=== PATIENT | female | born 1980 | race Caucasian/White ===

== ENCOUNTER 2019-07-07 10:41 | Emergency (ER) | payer OTHER, SELFPAY ==
--- NOTE | ~2019-07-07 | XR_ITS ---
EXAMINATION: XR knee LT min 4V DATE: 07/07/2019 11:15 INDICATION: Left knee pain. Fall. TECHNIQUE: 5 views of left knee were obtained. COMPARISON: None. FINDINGS: Bone alignment is normal. No fracture. There is mild osteoarthritis of medial compartment. No knee joint effusion. IMPRESSION: 1. Mild left knee osteoarthritis. Reviewed, dictated and finalized at location A. AL ATTENDANT
[2019-07-07 10:51] VITALS: BP 112/69; PULSE 64; RESP 18; TEMP 36.8; O2SAT 99
--- NOTE | 2019-07-07 11:02 | ED.LOWEXIN ---
HPI - Extremity Injury (Lower) General Chief Complaint: Extremity Injury, Lower Stated Complaint: L/knee pain Time Seen by Provider: 07/07/19 10:55 Mode of arrival: ambulatory Limitations: no limitations History of Present Illness HPI Narrative: Gail Fischer is a 38 yo female no prior medical history who comes to express care with painful knees after fall last night at work. Fell over tray and fell forward Smokes occasionally denies drinking Related Data Allergies Allergy/AdvReac Type Severity Reaction Status Date / Time No Known Allergies Allergy Verified 07/07/19 10:56 Review of Systems Review of Systems: Narrative: CONSTITUTIONAL: Denies fever, chills, sweats. EYES: Denies visual changes, redness, discharge. ENT: Denies rhinorrhea, congestion, sore throat, otalgia. CARDIOVASCULAR: Denies chest pain, palpitations, edema. RESPIRATORY: Denies dyspnea, wheezing, cough GASTROINTESTINAL: Denies abdominal pain, nausea, vomiting, diarrhea. GENITOURINARY: Denies dysuria, hematuria, abnormal discharge SKIN: Denies rash or itching. Extremities:Bilateral knee pain- abrasion on R, bruising on L NEUROLOGIC: Denies numbness, or focal weakness. PSYCHIATRIC: Denies anxiety or depression. [facility] Family History Family History Other No active medical problems Social History Social History (Updated 07/07/19 @ 11:14 by Jessi Saab CNP) Smoking status: Current some day smoker Alcohol intake: current Comments At time of signature, I agree with nursing past medical, surgical, social and family history. There is no relevant family history pertinent to the presenting complaint. Exam Narrative: Exam Narrative: GENERAL: This is a well-nourished, well-developed patient, in mild distress. HEAD: normocephalic, atraumatic. EYES: Sclera clear/white. Vision is grossly intact. EARS: External ears normal, Hearing grossly intact. NOSE: External nose normal with no obvious nasal discharge, nares without redness, no rhinorrhea. THROAT: Mucous membranes moist, NECK: Neck supple, non-tender without lymphadenopathy, CARDIOVASCULAR: Regular rate and rhythm without murmurs, gallops, or rubs. RESPIRATORY: Clear to auscultation. Breath sounds equal bilaterally. No wheezes, rales, or rhonchi. GASTROINTESTINAL: Abdomen soft, non-tender, splenomegaly, SKIN: warm, intact with no suspicious lesions or rash, good texture and turgor. NEURO: awake, alert, and oriented to person, place and time. There were no obvious focal neurologic abnormalities. Steady gait EXTREMITIES: Normal range of motion. No edema.L patellar swelling with flex pf 100 degrees. BACK: Nontender without deformity. Course Course Emergency Course: Xray Vital Signs Vital signs: Vital Signs Temperature 98.2 F 07/07/19 10:51 Pulse Rate 64 07/07/19 10:51 Respiratory Rate 18 07/07/19 10:51 Blood Pressure 112/69 07/07/19 10:51 Pulse Oximetry 99 07/07/19 10:51 Temperature 98.2 F 07/07/19 10:51 Pulse Rate 64 07/07/19 10:51 Respiratory Rate 18 07/07/19 10:51 Blood Pressure 112/69 07/07/19 10:51 Pulse Oximetry 99 07/07/19 10:51 MDM - Extremity Injury (Lower) Differential Diagnosis Differential diagnosis: Likely acute internal derangement of knee and other (patellar contusion or fracture) Discharge Plan Discharge Clinical Impression: Contusion of knee, left Qualifiers: Encounter type: initial encounter Qualified Code(s): S80.02XA - Contusion of left knee, initial encounter Abrasion of knee, right Qualifiers: Encounter type: initial encounter Qualified Code(s): S80.211A - Abrasion, right knee, initial encounter Patient Disposition: Home, Self-Care Condition: Stable Instructions: Knee Pain (ED) Prescriptions: New naproxen [EC-Naproxen] 500 mg tablet,delayed release (DR/EC) 500 mg PO BID Qty: 30 RF: 0 Follow-up/Referrals: UNKNOWN,DOCTOR [Prim
== END 2019-07-07 11:30 | disposition home or self-care (01) ==
PROVIDERS: Emergency Provider Nurse Practitioner
DX: S80.02XA Contusion of left knee, initial encounter (principal); W18.09XA Striking against other object with subsequent fall, initial encounter; Y99.0 Civilian activity done for income or pay; S80.211A Abrasion, right knee, initial encounter; F17.200 Nicotine dependence, unspecified, uncomplicated
CPT/HCPCS: 73564; 99213; G0463

== ENCOUNTER 2019-09-28 19:54 | Emergency (ER) | payer OTHER, SELFPAY ==
--- NOTE | 2019-09-28 19:59 | ED.SKABFB ---
HPI - Skin/Abscess/Foreign Bdy General Chief complaint: Skin/Abscess/Foreign Body Stated complaint: insect bite Time Seen by Provider: 09/28/19 19:59 Source: patient Mode of arrival: ambulatory Limitations: no limitations History of Present Illness HPI narrative: chema Fischer is a 38 yo female with anxiety, who came to express care with swelling on her left wrist with what looks like a insect bite, she also has a welt on her upper right arm and on her left abdomen, patient noticed swelling on her right wrist this afternoon the one on her arm and abdomen have been there for 1 to 2 days, all 3 lesions are pruritic Related Data Allergies Allergy/AdvReac Type Severity Reaction Status Date / Time No Known Allergies Allergy Verified 09/28/19 19:58 Review of Systems Review of Systems: Narrative: CONSTITUTIONAL: Denies fever, chills, sweats. EYES: Denies visual changes, redness, discharge. ENT: Denies rhinorrhea, congestion, sore throat, otalgia. CARDIOVASCULAR: Denies chest pain, palpitations, edema. RESPIRATORY: Denies dyspnea, wheezing, cough GASTROINTESTINAL: Denies abdominal pain, nausea, vomiting, diarrhea. GENITOURINARY: Denies dysuria, hematuria, abnormal discharge SKIN: Denies rash or itching.-3 lesions 1 on the left wrist that is swelling one on right upper arm one on abdomen NEUROLOGIC: Denies numbness, or focal weakness. PSYCHIATRIC: Denies anxiety or depression. [facility] Social History Social History Smoking status: Current some day smoker Alcohol intake: current Comments The patient's medical social surgical history is been reviewed and the this is not relevant to the reason she is at the [facility] today Exam Narrative: Exam Narrative: GENERAL: This is a well-nourished, well-developed patient, in mild distress. HEAD: normocephalic, atraumatic. EYES: PERRL. Sclera clear/white. Vision is grossly intact. EARS: External ears normal, . Hearing grossly intact. NOSE: External nose normal without nasal discharge, nares without redness, no rhinorrhea. THROAT: Mucous membranes moist, NECK: Neck supple, non-tender CARDIOVASCULAR: Regular rate and rhythm without murmurs, gallops, or rubs. RESPIRATORY: Clear to auscultation. Breath sounds equal bilaterally. No wheezes, rales, or rhonchi. GASTROINTESTINAL: Abdomen soft, non-tender, SKIN: warm, intact with 3 lesions -left wrist is red and swollen, right upper arm looks like a typical hive, tdeep red, left abdomen NEURO: awake, alert, and oriented to person, place and time. There were no obvious focal neurologic abnormalities. Steady gait EXTREMITIES: Normal range of motion. BACK: Nontender without deformity Course Course Emergency Course: Started on prednisone taper pack and Benadryl and Pepcid Vital Signs Vital signs: Vital Signs Temperature 97.2 F L 09/28/19 20:00 Pulse Rate 92 09/28/19 20:00 Respiratory Rate 16 09/28/19 20:00 Blood Pressure 130/83 09/28/19 20:00 Pulse Oximetry 99 09/28/19 20:00 Temperature 97.2 F L 09/28/19 20:00 Pulse Rate 92 09/28/19 20:00 Respiratory Rate 16 09/28/19 20:00 Blood Pressure 130/83 09/28/19 20:00 Pulse Oximetry 99 09/28/19 20:00 MDM - Skin/Abscess/Foreign Bdy Differential Diagnosis Differential diagnosis: Likely urticaria, allergic reaction to drug, insect bites, contact dermatitis and other Discharge Plan Discharge Clinical Impression: Urticaria Insect bites Qualifiers: Encounter type: initial encounter Site of insect bite: forearm Laterality: left Qualified Code(s): S50.862A - Insect bite (nonvenomous) of left forearm, initial encounter Patient Disposition: Home, Self-Care Condition: Stable Instructions: Urticaria (ED), Insect Bite or Sting (ED) Prescriptions: New famotidine [Pepcid] 20 mg tablet 20 mg PO BID Qty: 10 RF: 0 diphenhydramine HCl [Benadryl] 25 mg capsule 25 mg PO Q6H PRN (Reason: allerg
[2019-09-28 20:00] VITALS: BP 130/83; PULSE 92; RESP 16; TEMP 36.2; O2SAT 99
== END 2019-09-28 20:12 | disposition home or self-care (01) ==
PROVIDERS: Emergency Provider Nurse Practitioner
DX: L50.9 Urticaria, unspecified (principal); S50.862A Insect bite (nonvenomous) of left forearm, initial encounter; W57.XXXA Bitten or stung by nonvenomous insect and other nonvenomous arthropods, initial encounter
CPT/HCPCS: 99213; G0463

== ENCOUNTER 2022-09-19 14:32 | Emergency (ER) | payer OTHER, SELFPAY ==
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
[2022-09-19 14:44] VITALS: BP 123/78; PULSE 58; RESP 18; TEMP 36.6; O2SAT 99
== END 2022-09-19 15:28 | disposition home or self-care (01) ==
PROVIDERS: Emergency Provider Nurse Practitioner Family; PCP Nurse Practitioner Family
DX: M54.6 Pain in thoracic spine (principal); F17.200 Nicotine dependence, unspecified, uncomplicated
CPT/HCPCS: 72050; 72072; 99213; G0463

== ENCOUNTER 2022-10-30 17:26 | Emergency (ER) | payer OTHER, SELFPAY ==
[2022-10-30 17:45] VITALS: BP 156/84; PULSE 76; RESP 18; TEMP 36.6; O2SAT 99
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
== END 2022-10-30 18:05 | disposition home or self-care (01) ==
PROVIDERS: Emergency Provider Nurse Practitioner Family; PCP Nurse Practitioner Family
DX: M54.9 Dorsalgia, unspecified (principal)
CPT/HCPCS: 99213; G0463

== ENCOUNTER 2023-09-09 17:34 | Emergency (ER) | payer OTHER, SELFPAY ==
--- NOTE | 2023-09-09 17:39 | ED.NAVMDI ---
HPI - Nausea/Vomiting/Diarrhea General Chief complaint: Nausea/Vomiting/Diarrhea Stated complaint: Tiredness, can't keep anything down. Time Seen by Provider: 09/09/23 17:39 Source: patient Mode of arrival: ambulatory Limitations: no limitations History of Present Illness HPI Narrative: Gail is a 42-year-old female patient presenting to the clinic today with complaints of tiredness, nausea, diarrhea, cough, and congestion times 4 days. She denies any known fever or chills. States that every time she eats she has some diarrhea. Denies any abdominal discomfort at this time. Denies any chest pain or shortness of breath. History of anemia and takes iron for this. Related Data Home Medications Medication Instructions Recorded Confirmed Iron 1 cap PO DAILY 09/09/23 09/09/23 Allergies Allergy/AdvReac Type Severity Reaction Status Date / Time No Known Allergies Allergy Verified 09/09/23 17:51 Review of Systems Review of Systems: Pertinent positives per HPI. Patient denies any fever, chills, rash, headache, visual changes, dizziness, shortness of breath, chest pain, palpitations, vomiting, constipation, abdominal pain, or any urinary issues. [facility] Past Medical History Medical History (Updated 09/09/23 @ 18:21 by Efra Last APRN) Anxiety Surgical History Surgical History History of Family History Family History Other No active medical problems Social History Social History Smoking status: Current some day smoker Alcohol intake: current Comments At the time of my signature, I reviewed and agree with the nursing past medical, surgical, social, and family history. There is no relevant family history pertinent to the patient complaint. Exam Narrative: General: Well-developed, morbidly obese, in no apparent distress Head: Normocephalic, atraumatic Eyes: Pupils equally round and reactive to light bilaterally, EOM intact, sclera and conjunctive clear, no discharge, lids normal Ears: TMs intact and clear, ear canals clear, no drainage, grossly hearing normal. Nose: Nares patent, clear discharge, no inflammation, no sinus tenderness. Mouth: Oral pharynx without lesions or masses, good dentition, MMM. Neck: Supple, trachea midline, no enlargement of anterior or posterior cervical nodes, no thyroid masses or goiter palpable. Cardio: Regular rate and rhythm, s1 and s2 normal, no murmur appreciated. Resp: Clear to auscultation bilaterally, no rhonchi, rales, wheezing or rubs Abdomen: Soft, pliable, nondistended, bowel sounds present all 4 quadrants, nontender to palpation, no organomegaly, no CVAT tenderness Course Course Emergency Course: Portions of this record may have been created with voice recognition software. Level of Care: Express Care Visit Vital Signs Vital signs: Vital Signs Temperature 36.4 C 09/09/23 17:54 Pulse Rate 80 09/09/23 17:54 Respiratory Rate 18 09/09/23 17:54 Blood Pressure 121/68 09/09/23 17:54 Pulse Oximetry 100 09/09/23 17:54 Oxygen Delivery Room Air 09/09/23 17:54 Temperature 36.4 C 09/09/23 17:54 Pulse Rate 80 09/09/23 17:54 Respiratory Rate 18 09/09/23 17:54 Blood Pressure 121/68 09/09/23 17:54 Pulse Oximetry 100 09/09/23 17:54 Oxygen Delivery Room Air 09/09/23 17:54 Vital signs reviewed MDM - Nausea/Vomiting/Diarrhea MDM Narrative Medical decision making narrative: At the time of visit patient is resting comfortably on the exam table. Patient appears to be nontoxic. Labs: COVID and influenza testing was negative. Plan: I suspect patient has URI with viral gastroenteritis. Prescription for Zofran was sent to the pharmacy. Vital signs are stable in the clinic today. Supportive measures were discussed w
[2023-09-09 17:54] VITALS: BP 121/68; PULSE 80; RESP 18; TEMP 36.4; O2SAT 100
== END 2023-09-09 18:24 | disposition home or self-care (01) ==
PROVIDERS: Emergency Provider Nurse Practitioner Family
DX: A08.4 Viral intestinal infection, unspecified (principal); J06.9 Acute upper respiratory infection, unspecified; Z20.822 Contact with and (suspected) exposure to COVID-19; F17.200 Nicotine dependence, unspecified, uncomplicated; D64.9 Anemia, unspecified
CPT/HCPCS: 87426; 87804; 99213; G0463

== ENCOUNTER 2024-07-26 09:40 | Emergency (ER) | payer OTHER, SELFPAY ==
[2024-07-26] VITALS (8 sets, daily range): BP systolic 108–133; BP diastolic 72–97; PULSE 98–130; RESP 20–22; TEMP 36.9–38.3; O2SAT 96–97
--- NOTE | ~2024-07-26 | XR_ITS ---
Clinical Indication: Upper respiratory infection, shortness of breath PA and lateral views of the chest: Comparison: None Findings: The lungs are clear, without evidence of focal consolidation or pleural effusion. Cardiome diastinal silhouette is within normal limits. Bones and soft tissues are unremarkable. Impression: Normal chest. Reviewed, dictated and finalized at [facility]. Impression: Normal chest.
--- NOTE | 2024-07-26 10:06 | ECG_ITS ---
Test Date: 2024-07-26 10:16:56 Measurements Intervals [place] Rate: 119 P: 60 CA: 141 QRS: 49 QRSD: 88 T: 47 QT: 316 QTc: 445 Interpretive Statements SINUS TACHYCARDIA No previous ECG available for comparison Electronically Signed On 07-26-2024 13:44:06 CDT by Key Byrd M.D.
[2024-07-26] MEDS: ACETAMINOPHEN 500 MG TABLET 1000 MG PO (10:23)
--- OUTSIDE RECORDS SUMMARY | 2024-07-26 10:27 | XMS_ITS | CONTINUITY OF CARE DOCUMENT ---
Author Name jake joseph Address Unknown Organization [facility] Address [address] [place] [address] Phone [phone] Care Team Providers Care Fsr Name Role Phone Jocelyn MACEDO, Vicente Alas Unavailable [phone] BRYAN VALERIO MD Unavailable [phone] INSURANCE PROVIDERS Payer name Policy type / Coverage type Ida red [employer] [place] [employer] (2) Medicaid [id number]
[2024-07-26 10:43] LABS: Basophils Percent Auto 0.2 % (0.2-1.2); Eosinophils Percent Auto 0.1 % (0-4.4); Hematocrit 38.5 % (37.0-47.0); Immature Granulocyte Absolute 0.07 K/mm3 (0.00-0.031); Immature Granulocyte Percent A 0.7 % (0-0.5); Lymphocytes Absolute Auto 1.32 K/mm3 (0.9-3.2); Mean Corpuscular HGB Conc 33.8 g/dl (32-36); Mean Corpuscular Hemoglobin 28.4 pg (26-34); Mean Corpuscular Volume 84.1 fl (80-100); Monocytes Absolute Auto 0.8 K/mm3 (0.1-0.6); Monocytes Percent Auto 7.9 % (2.6-8.5); Neutrophils Percent Auto 78.1 % (45.5-73.1); Platelet Count Result 170 k/mm3 (150-375); Red Blood Count 4.58 M/mm3 (4.2-5.4); Red Cell Distribution Width 14.3 % (11.5-14.5); White Blood Count 10.2 K/mm3 (4.5-10.0)
--- NOTE | 2024-07-26 10:48 | ED_ITS ---
HPI - SOB/Dyspnea General Chief Complaint: Shortness of Breath/Dyspnea Stated Complaint: SOB-17 weeks Time Seen by Provider: 07/26/24 10:05 Source: patient Mode of arrival: ambulatory Limitations: no limitations History of Present Illness HPI Narrative: Patient is a 43-year-old female who presents the ED with report of URI symptoms. Patient reports her daughter was diagnosed with influenza A 2 days ago. She developed symptoms shortly afterwards. She complains of cough, congestion, fevers, body aches, headache, diarrhea, sore throat. She does report some shortness of breath, worse with exertion. Reports chest pain with coughing. Patient is currently 17 weeks gestation. . OBGYN is Dr. Anderson. Denies abdominal pain or vaginal bleeding. Has not taken anything for her symptoms today. Related Data Home Medications ?Medication ?Instructions ?Recorded ?Confirmed ?Last Taken ?Type aspirin 81 mg capsule 81 mg PO DAILY 07/26/24 07/26/24 Unknown History Allergies Allergy/AdvReac Type Severity Reaction Status Date / Time No Known Allergies Allergy Verified 07/26/24 10:16 Review of Systems 2 Review of Systems: All systems reviewed & are unremarkable except as noted in HPI. All systems reviewed & are unremarkable except as noted in HPI and below PMFSH Past Medical History Medical History Anxiety Surgical History Surgical History History of Family History Family History Other No active medical problems Social History Social History Smoking status: Current some day smoker Alcohol intake: current Exam 2 Narrative: GENERAL: Mildly ill-appearing, obese with BMI of 38.3, non-toxic, in no acute distress. HEAD: Normocephalic, atraumatic. RESPIRATORY: Airway patent, respirations nonlabored. Very faint occasional wheeze in left upper lung. No significant rhonchi. Occasional coughing. CARDIOVASCULAR: Tachycardic with regular rhythm without murmurs, rubs, or gallops. ABDOMINAL: Soft, uterus gravid, nontender, nondistended. Normoactive BS. MUSCULOSKELETAL: Moves all extremities. No gross deformities. SKIN: Warm, dry, normal color. NEURO: A&O X3. Speech clear. Cranial nerves II-XII grossly intact. Steady gait. No ataxic movements. PSYCHIATRIC: Appropriate mood and affect. Normal interaction. Course Vital Signs Vital signs: Vital Signs Temperature 101 F H 07/26/24 09:52 Pulse Rate 130 H 07/26/24 09:52 Respiratory Rate 22 H 07/26/24 09:52 Blood Pressure 133/78 07/26/24 09:52 Pulse Oximetry 97 07/26/24 09:52 Oxygen Delivery Room Air 07/26/24 09:52 Temperature 98.5 F 07/26/24 11:28 Pulse Rate 103 H 07/26/24 12:47 Respiratory Rate 22 H 07/26/24 12:47 Blood Pressure 108/72 07/26/24 12:47 Pulse Oximetry 97 07/26/24 12:47 Oxygen Delivery Room Air 07/26/24 10:09 MDM - SOB/Dyspnea MDM Narrative Medical decision making narrative: Patient presented to ED with URI symptoms, recent exposure to influenza A, mild CP/SOB. Currently 17 weeks gestation. Patient tachycardic, tachypneic, febrile upon arrival. Given Tylenol. Fluids initiated. Cbc with blood cell count of 10.2. CMP with bicarb of 17, minimal anion gap of 13. Kidney function is stable. Fluids ongoing. Viral swab positive for influenza A. Consistent with clinical picture. EKG showing sinus tachycardia, no concerning ST changes. Troponin undetectable. Discussed obtaining a chest x-ray, patient was agreeable. Chest x-ray is clear. No focal findings. Patient was ambulated throughout the ED with no ambulatory hypoxia. Feel she is safe for discharge home at this time. Will be started on Tamiflu given status. Discussed further management of symptoms at home. Patient in agreement with this plan. She feels comfortable going home. Recommended close follow-up with OBGYN for further evaluation. Given return precautions. Discharged in stable condition. Medical Records Attestation: I reviewed the patient's medical records. Lab Data Attestation: I reviewed the patient's lab results. 07/26/24 10:38 07/26/24 10:38 Labs: Lab Results 07/26/24 07/26/24 Range/Units 10:23 10:38 WBC 10.2 H (4.5-10.0) K/mm3 RBC 4.58 (4.2-5.4) M/mm3 Hgb 13.0 (12.0-15.0) g/dL Hct 38.5 (37.0-47.0) % MCV 84.1 (80-100) fl MCH 28.4 (26-34) pg MCHC 33.8 (32-36) g/dl RDW 14.3 (11.5-14.5) % Plt Count 170 (150-375) k/mm3 MPV 10.0 (7.4-10.4) fl Immature Gran % (Auto) 0.7 H (0-0.5) % Neut % (Auto) 78.1 H (45.5-73.1) % Lymph % (Auto) 13.0 L (18.3-44.2) % Heard % (Auto) 7.9 (2.6-8.5) % Eos % (Auto) 0.1 (0-4.4) % Baso % (Auto) 0.2 (0.2-1.2) % Lymph # (Auto) 1.32 (0.9-3.2) K/mm3 Heard # (Auto) 0.8 H (0.1-0.6) K/mm3 Eos # (Auto) 0.0 (0-0.3) K/mm3 Baso # (Auto) 0.0 (0.0-0.1) K/mm3 Abs Immat Gran (auto) 0.07 H (0.00-0.031) K/mm3 Absolute Neuts (auto) 8.0 H (1.3-6.7) K/mm3 Absolute Nucleated RBC 0.000 (0.0-0.012) K/mm3 Nucleated RBC % 0.0 (0.0-0.2) % Sodium 133 L (137-145) mmol/L Potassium 3.7 (3.4-5.0) mmol/L Chloride 103 (98-107) mmol/L Carbon Dioxide 17 L (22-30) mmol/L Anion Gap 13 H (4-12) mmol/L BUN 6 L (7-17) mg/dL Creatinine 0.42 L (0.7-1.0) mg/dL Estim Creat Clear Calc 179 ml/min Estimated GFR > 60 (59 - ) Glucose 92 (65-110) mg/dL Calcium 8.8 (8.4-10.2) mg/dL Total Bilirubin 0.3 (0.2-1.3) mg/dL AST 34 (14-36) U/L ALT 34 (6-35) U/L Alkaline Phosphatase 49 (38-126) U/L Troponin I < 0.012 (0.000-0.034) ng/mL Total Protein 8.0 (6.3-8.2) g/dL Albumin 4.3 (3.5-5.1) g/dL Influenza A (RT-PCR) Positive A (Negative) Influenza B (RT-PCR) Negative (Negative) RSV (RT-PCR) Negative (Negative) SARS-CoV-2 RNA (RT-PCR) Negative (Negative) Imaging Data Attestation: I personally reviewed and interpreted this imaging study as follows: Radiologist's impression: ITS Impressions Chest X-Ray 07/26/24 11:04 Impression: Normal chest. ECG Data EKG #1: Attestation: I personally reviewed and interpreted this ECG as follows: ECG completion date: 07/26/24 ECG completion time: 10:16 EKG Interpretation: tachycardia (119), sinus rhythm and no ST changes Discharge Plan Discharge Clinical Impression: Influenza A, 17 weeks gestation of Patient Disposition: Home, Self-Care Condition: Stable Instructions: Antibiotic Form, Dehydration (ED), Influenza (ED), Viral Syndrome (ED) Additional Instructions: You were diagnosed with Influenza A today. Isolate at home as you are contagious. Take Tamiflu as prescribed. Stay well-hydrated at home. Recommend electrolyte rich fluids, Gatorade, Pedialyte, body armor. Continue Tylenol around the clock as needed for body aches/fevers. Recommend [id number] cough and cold medicines for symptom relief, Delsym, Mucinex, Robitussin. These are safe in . Follow with your primary care doctor and OBGYN for further evaluation if needed. Return to the ED if you experience worsening or severe difficulty breathing, severe chest pain, unable to keep down food or drink, abdominal pain, vaginal bleeding, or any other symptoms of concern. Patient Language: Pashto Prescriptions: New oseltamivir [Tamiflu] 75 mg capsule 75 mg PO Q12H 5 Days Qty: 10 0RF No Action aspirin 81 mg capsule 81 mg PO DAILY Follow-up/Referrals: UNKNOWN,DOCTOR [Primary Care Provider] - Time of Disposition: 12:38
[2024-07-26] MEDS: SODIUM CHLORIDE 0.9% IV 1,000 ML 999 ML IV CONT (10:49)
[2024-07-26 10:59] LABS: Alanine Aminotransferase 34 U/L (6-35); Albumin Level 4.3 g/dL (3.5-5.1); Alkaline Phosphatase 49 U/L (38-126); Anion Gap 13 mmol/L (4-12); Aspartate Amino Transferase 34 U/L (14-36); Bilirubin,Total 0.3 mg/dL (0.2-1.3); Blood Urea Nitrogen 6 mg/dL (7-17); Calcium 8.8 mg/dL (8.4-10.2); Carbon Dioxide 17 mmol/L (22-30); Chloride 103 mmol/L (98-107); Estimated CRCL calculation 179 ml/min; Estimated Glomerular Filt Rate > 60; Glucose 92 mg/dL (65-110); Potassium 3.7 mmol/L (3.4-5.0); Sodium 133 mmol/L (137-145)
[2024-07-26 11:05] LABS: Influenza A QL RT-PCR Positive (Negative); Influenza B QL RT-PCR Negative (Negative); RSV RNA, RT-PCR Negative (Negative); SARS-CoV-2 RNA PCR Negative (Negative)
[2024-07-26 11:28] LABS: Troponin I < 0.012 ng/mL (0.000-0.034)
--- OUTSIDE RECORDS SUMMARY | 2024-07-26 11:34 | XMS_ITS | CONTINUITY OF CARE DOCUMENT ---
Author Name jake joseph Address Unknown Organization [facility] Address [address] [place] [address] Phone [phone] Care Team Providers Care Tool Liaison Name Role Phone Jocelyn MACEDO, Vicente Alas Unavailable [phone] BRYAN VALERIO MD Unavailable [phone] INSURANCE PROVIDERS Payer name Policy type / Coverage type [place] [employer] [place] [employer] (2) Medicaid [id number]
== END 2024-07-26 12:49 | disposition home or self-care (01) ==
PROVIDERS: Emergency Provider Physician Assistant
DX: O99.512 Diseases of the respiratory system complicating pregnancy, second trimester (principal); J10.1 Influenza due to other identified influenza virus with other respiratory manifestations; Z20.822 Contact with and (suspected) exposure to COVID-19; O09.522 Supervision of elderly multigravida, second trimester; Z3A.17 17 weeks gestation of pregnancy; Z79.82 Long term (current) use of aspirin
CPT/HCPCS: 36415; 71046; 80053; 84484; 85025; 87637; 93005; 96360; 99284; A9270; J7030

== ENCOUNTER 2024-11-07 17:34 | Observation (INO) | payer OTHER, SELFPAY ==
[2024-11-07] VITALS (27 sets, daily range): BP systolic 99–135; BP diastolic 52–85; PULSE 64–92; TEMP 36.1–36.3; O2SAT 98–100; BMI 40.4
--- NOTE | ~2024-11-07 | US_ITS ---
EXAMINATION: US OB BPP wo non-stress DATE: 11/07/2024 20:50 CDT INDICATION: Evaluate placenta, and check cervical length TECHNIQUE: Real-time transabdominal obstetric ultrasound. FINDINGS: There is a single intrauterine gestation in vertex presentation. The placenta is anterior without placenta previa. The cervix measures 3.34 cm on submitted imaging. Deepest vertical pocket of amniotic fluid measures 3.6 cm. cardiac activity and movement is noted with a heart rate of 124 beats per minute. Biophysical profile: breathin of 2 movement: 2 of 2 tone: 2 of 2 Amniotic fluid pocket: 2 of 2 Total score: 8 of 8 IMPRESSION: Single intrauterine gestation in vertex presentation. Total biophysical profile score of 8 out of 8. Cervical length: 3.34 cm Placenta is anterior without placenta previa Reviewed, dictated and finalized at location A.
--- NOTE | 2024-11-07 19:07 | OBADM ---
This patient, Gail Fischer, admitted to the OB room OB Post 116 for observation. Patient/family oriented to hospital policies and general routines including ID bracelet, bed and alarms, visiting hours, pain management, procedures, bathroom and other care routines, personal items, smoking policy, room service/diet, and visiting hours. Patient/Family are encouraged to report perceived risks to care and to ask questions if they do not understand what they are told or what they should do.
--- NOTE | 2024-11-07 19:15 | PC.NURSE ---
Assessed pads, no vaginal spotting at this time.
--- NOTE | 2024-11-07 19:38 | PC.NURSE ---
Dr. Mónica Restrepo responded to page, update on vaginal spotting started at 1700, no vaginal bleeding noted since on the unit, no cramping, contractions, or pain, and Category I tracing. Orders received for ultrasound with BPP, placenta check, cervical length, position of placenta, draw Kleihauer Betke, and monitors may be removed.
--- NOTE | 2024-11-07 21:30 | PC.NURSE ---
Assessed pads, no vaginal spotting at this time.
--- NOTE | 2024-11-07 21:36 | PC.NURSE ---
Dr. Mónica Restrepo responded to page, update on pt, ultrasound report, BPP 8 out of 8, and Kleihauer Betke result pending. Orders received to discharge pt with instructions to call the office to make next appointment, when to return to the unit, and Dr. Mónica Restrepo's office will call if positive Kleihauer Betke.
--- NOTE | 2024-11-07 21:59 | PC.NURSE ---
Pt discharged with instructions to call the office to make next appointment, when to return to the unit, and Dr. Mónica Restrepo's office will call if positive Russell Mora pt verbalizes understanding.
--- NOTE | 2024-11-08 12:31 | PM.OBTRLD ---
OB - Triage/Final Diagnosis Visit Information Reason for evaluation: threatened labor Comments/Additional reasons for admission: I have assessed the risk for this patient, Gail Fischer, and determined that she would benefit from observation care. Evaluation Laboratory results: Laboratory Tests 11/07/24 19:51 KB Hemoglobin Negative Vital signs: Vital Signs - 24 hr 11/07/24 17:54 11/07/24 18:00 11/07/24 18:15 Temperature Pulse Rate 92 86 85 Blood Pressure 123/80 111/79 135/85 Pulse Oximetry Oxygen Delivery 11/07/24 18:21 11/07/24 18:28 11/07/24 18:30 Temperature Pulse Rate 77 Blood Pressure 130/78 Pulse Oximetry 99 98 Oxygen Delivery 11/07/24 18:30 11/07/24 18:33 11/07/24 18:38 Temperature Pulse Rate Blood Pressure Pulse Oximetry 100 99 Oxygen Delivery Room Air 11/07/24 18:42 11/07/24 18:45 11/07/24 18:47 Temperature Pulse Rate 83 Blood Pressure 102/57 L Pulse Oximetry 99 100 Oxygen Delivery 11/07/24 18:52 11/07/24 18:57 11/07/24 19:00 Temperature Pulse Rate 80 Blood Pressure 105/53 L Pulse Oximetry 99 100 Oxygen Delivery 11/07/24 19:02 11/07/24 19:07 11/07/24 19:11 Temperature 97 F L Pulse Rate Blood Pressure Pulse Oximetry 99 99 Oxygen Delivery 11/07/24 19:12 11/07/24 19:15 11/07/24 19:25 Temperature Pulse Rate 80 Blood Pressure 99/52 L Pulse Oximetry 100 99 Oxygen Delivery 11/07/24 19:30 11/07/24 19:35 11/07/24 19:40 Temperature Pulse Rate Blood Pressure Pulse Oximetry 98 99 99 Oxygen Delivery 11/07/24 19:45 11/07/24 19:50 11/07/24 19:55 Temperature Pulse Rate Blood Pressure Pulse Oximetry 99 99 99 Oxygen Delivery 11/07/24 21:45 Temperature 97.4 F L Pulse Rate Blood Pressure Pulse Oximetry Oxygen Delivery
== END 2024-11-07 21:59 | disposition home or self-care (01) ==
PROVIDERS: Admitting Provider Obstetrics & Gynecology; Visit Provider Obstetrics & Gynecology
DX: O47.03 False labor before 37 completed weeks of gestation, third trimester (principal); Z3A.31 31 weeks gestation of pregnancy
CPT/HCPCS: 36415; 76819; 85460; G0378; G0379

== ENCOUNTER 2024-11-25 14:37 | Outpatient (CLI) | payer OTHER, SELFPAY ==
[2024-11-25 15:01] VITALS: BP 119/80; PULSE 95
[2024-11-25 15:11] LABS: Hematocrit 34.5 % (37.0-47.0); Hemoglobin 10.9 g/dL (12.0-15.0); Immature Granulocyte Percent A 0.7 % (0-0.5); Lymphocytes Absolute Auto 2.23 K/mm3 (0.9-3.2); Mean Corpuscular HGB Conc 31.6 g/dl (32-36); Mean Corpuscular Hemoglobin 26.3 pg (26-34); Mean Corpuscular Volume 83.3 fl (80-100); Nucleated Red Blood Cells Absolute Auto 0.000 K/mm3 (0.0-0.012); Nucleated Red Blood Cells Perc 0.0 % (0.0-0.2); Platelet Count Result 233 k/mm3 (150-375); Red Blood Count 4.14 M/mm3 (4.2-5.4); White Blood Count 11.1 K/mm3 (4.5-10.0)
[2024-11-25 15:16] VITALS: BP 116/82; PULSE 96
[2024-11-25 15:18] LABS: Add Urine Microscopic? YES; Appearance Urine Cloudy (Clear); Glucose Urine UA Negative (Negative); Leukocyte Esterase Ur 1+ LEU/UL (Negative); Nitrate Urine Negative (Negative); Non Pathogenic Casts 0-2; Specific Grav Ur 1.024 (1.001-1.035)
[2024-11-25 15:22] LABS: Alanine Aminotransferase 14 U/L (6-35); Albumin Level 3.6 g/dL (3.5-5.1); Alkaline Phosphatase 92 U/L (38-126); Anion Gap 9 mmol/L (4-12); Aspartate Amino Transferase 20 U/L (14-36); Bilirubin,Total 0.2 mg/dL (0.2-1.3); Blood Urea Nitrogen 6 mg/dL (7-17); Calcium 9.1 mg/dL (8.4-10.2); Carbon Dioxide 17 mmol/L (22-30); Chloride 108 mmol/L (98-107); Estimated Glomerular Filt Rate > 60; Glucose 100 mg/dL (65-110); Potassium 3.6 mmol/L (3.4-5.0); Sodium 134 mmol/L (137-145); Total Protein 7.2 g/dL (6.3-8.2); Uric Acid 4.4 mg/dL (2.5-7.5)
[2024-11-25 15:31] VITALS: BP 121/77; PULSE 99
[2024-11-25 15:45] LABS: Total Protein Urine Random 11 mg/dL; Ur Ttl Prot Creatinine Ratio 0.06 mg/mg (0-0.20)
[2024-11-25 15:46] VITALS: BP 117/75; PULSE 93
[2024-11-25 16:47] VITALS: BP 117/75; PULSE 93
== END 2024-11-25 16:00 | disposition home or self-care (01) ==
LOC: ANHOBOP 14:42 → ANHLDR 14:44 → ANHOBOP 15:46
PROVIDERS: Obstetrics & Gynecology; Visit Provider Obstetrics & Gynecology
DX: O26.899 Other specified pregnancy related conditions, unspecified trimester (principal); R51.9 Headache, unspecified; R11.0 Nausea; Z3A.00 Weeks of gestation of pregnancy not specified
CPT/HCPCS: 36415; 59025; 80053; 81001; 82570; 84156; 84550; 85025; 99199

== ENCOUNTER 2024-12-18 15:19 | Observation (INO) | payer OTHER, SELFPAY ==
[2024-12-18 15:44] VITALS: BMI 39.1
[2024-12-18 15:58] LABS: Add Urine Microscopic? YES; Appearance Urine Clear (Clear); Glucose Urine UA Negative (Negative); Leukocyte Esterase Ur Trace LEU/UL (Negative); Nitrate Urine Negative (Negative); Non Pathogenic Casts 0-2; Specific Grav Ur 1.016 (1.001-1.035)
[2024-12-18 16:20] VITALS: TEMP 36.6
[2024-12-18 16:31] VITALS: BP 137/78; PULSE 72
[2024-12-18 16:46] VITALS: BP 128/77; PULSE 65
--- NOTE | 2024-12-20 11:00 | P.PNOB_ITS ---
OB - Triage/Final Diagnosis Visit Information Comments/Additional reasons for admission: I have assessed the risk for this patient, Gail Fischer, and determined that she would benefit from observation care. Evaluation Laboratory results: Laboratory Tests 12/18/24 15:41 Urine Color Yellow Urine Appearance Clear Urine pH 6.5 Ur Specific [place] 1.016 Urine Protein Negative Urine Glucose (UA) Negative Urine Ketones Negative Ur Blood (Man) Negative Urine Nitrate Negative Urine Bilirubin Negative Urine Urobilinogen 1.0 Leukocyte Esterase Rfl Trace H Urine RBC 0-2 Urine WBC 0-5 Ur Squamous Epith Cells None seen Urine Bacteria None seen Urine Casts 0-2 Final Diagnosis (1) Back pain affecting : Code(s): O99.891 - Other specified diseases and conditions complicating ; M54.9 - Dorsalgia, unspecified Status: Acute
== END 2024-12-18 16:46 | disposition home or self-care (01) ==
PROVIDERS: Admitting Provider Obstetrics & Gynecology; Visit Provider Obstetrics & Gynecology
DX: O99.891 Other specified diseases and conditions complicating pregnancy (principal); M54.9 Dorsalgia, unspecified
CPT/HCPCS: 81001; G0378; G0379

== ENCOUNTER 2024-12-21 17:45 | Observation (INO) | payer OTHER, SELFPAY ==
--- NOTE | 2024-12-29 12:18 | PM.OBTRLD ---
OB - Triage/Final Diagnosis Visit Information Comments/Additional reasons for admission: I have assessed the risk for this patient, Gail Fischer, and determined that she would benefit from observation care. Final Diagnosis (1) Spotting affecting in third trimester: Code(s): O26.853 - Spotting complicating , third trimester Status: Acute
== END 2024-12-21 18:50 | disposition home or self-care (01) ==
PROVIDERS: Admitting Provider Obstetrics & Gynecology; Visit Provider Obstetrics & Gynecology
DX: O26.853 Spotting complicating pregnancy, third trimester (principal)
CPT/HCPCS: G0378; G0379

== ENCOUNTER 2024-12-22 16:01 | Observation (INO) | payer OTHER, SELFPAY ==
[2024-12-22] VITALS (9 sets, daily range): BP systolic 120–133; BP diastolic 68–89; PULSE 57–80; BMI 39.1
--- NOTE | 2024-12-22 18:00 | PC.NURSE ---
Temp 97.1
--- NOTE | 2024-12-22 18:58 | PC.NURSE ---
Call placed to Dr. Lenz reported pt c/o spotting, abd pain. Pt is a . FHR, CTX, SVEs reported. Order to d/c pt home undelivered with orders to rest and hydrate over the weekend.
--- NOTE | 2024-12-22 19:11 | PC.NURSE ---
Pt discharged home undelivered in stable condition per order from Dr. Lenz. Discharge instructions explained to pt, pt stated understanding, all questions and concerns answered, discharge instructions given to pt. Pt ambulated out of department with all belongings.
--- NOTE | 2024-12-25 07:53 | PM.OBTRLD ---
OB - Triage/Final Diagnosis Visit Information Date of evaluation: 12/23/24 Reason for evaluation: threatened labor Comments/Additional reasons for admission: I have assessed the risk for this patient, Gail Fischer, and determined that she would benefit from observation care.
== END 2024-12-22 19:14 | disposition home or self-care (01) ==
PROVIDERS: Admitting Provider Obstetrics & Gynecology; Visit Provider Obstetrics & Gynecology
DX: O47.1 False labor at or after 37 completed weeks of gestation (principal); Z3A.38 38 weeks gestation of pregnancy
CPT/HCPCS: G0378; G0379

== ENCOUNTER 2024-12-23 04:32 | Inpatient (IN) | payer OTHER, SELFPAY ==
[2024-12-23] VITALS (51 sets, daily range): BP systolic 113–197; BP diastolic 63–153; PULSE 50–124; RESP 16–18; TEMP 36.6–36.8; O2SAT 90–100; BMI 40.1
[2024-12-23] MEDS: LACTATED RINGERS 1,000 ML 125 ML IV CONT (05:05)
[2024-12-23] MEDS: AMPICILLIN SODIUM 2 GM in SODIUM CHLORIDE 0.9% IV 100 ML 200 ML IVPB (05:10)
[2024-12-23 05:20] LABS: Hematocrit 35.3 % (37.0-47.0); Hemoglobin 11.1 g/dL (12.0-15.0); Immature Granulocyte Percent A 0.6 % (0-0.5); Lymphocytes Absolute Auto 1.81 K/mm3 (0.9-3.2); Mean Corpuscular HGB Conc 31.4 g/dl (32-36); Mean Corpuscular Hemoglobin 25.4 pg (26-34); Mean Corpuscular Volume 80.8 fl (80-100); Nucleated Red Blood Cells Absolute Auto 0.000 K/mm3 (0.0-0.012); Nucleated Red Blood Cells Perc 0.0 % (0.0-0.2); Platelet Count Result 249 k/mm3 (150-375); Red Blood Count 4.37 M/mm3 (4.2-5.4); White Blood Count 24.2 K/mm3 (4.5-10.0)
--- NOTE | 2024-12-23 06:32 | WPDANESEPP ---
Anes - Eval Pre Procedure Procedure: labor epidural Date/Time: 12/23/24 06:32 Surgeon: ping Preop Diagnosis: pain during labor Pre Op Diagnosis: CTX Patient Data Age: 44 Gender: F Height: 1.68 m Weight: 113 kg Last Vital Signs Pulse 80 12/23/24 06:31 BP 130/70 12/23/24 06:31 Pulse Ox 98 12/23/24 06:28 Allergies Allergy/AdvReac Type Severity Reaction Status Date / Time No Known Allergies Allergy Verified 12/23/24 05:30 Home Medications ?Medication ?Instructions ?Recorded ?Confirmed ?Type aspirin 81 mg capsule 81 mg PO DAILY 07/26/24 12/23/24 History docosahexaenoic acid 200 mg mg PO 11/16/24 12/21/24 History capsule ( DHA) ondansetron HCl 4 mg tablet 4 mg PO Q6H PRN nausea and 11/25/24 12/23/24 Rx vomiting #30 tabs docusate sodium 100 mg capsule 100 mg PO DAILY 12/14/24 12/23/24 History (Colace) Laboratory Tests 12/23/24 05:12 WBC 24.2 H K/mm3 (4.5-10.0) RBC 4.37 M/mm3 (4.2-5.4) Hgb 11.1 L g/dL (12.0-15.0) Hct 35.3 L % (37.0-47.0) MCV 80.8 fl (80-100) MCH 25.4 L pg (26-34) MCHC 31.4 L g/dl (32-36) RDW 14.7 H % (11.5-14.5) Plt Count 249 k/mm3 (150-375) MPV 11.3 H fl (7.4-10.4) Immature Gran % (Auto) 0.6 H % (0-0.5) Neut % (Auto) 87.9 H % (45.5-73.1) Lymph % (Auto) 7.5 L % (18.3-44.2) Benson % (Auto) 3.8 % (2.6-8.5) Eos % (Auto) 0.1 % (0-4.4) Baso % (Auto) 0.1 L % (0.2-1.2) Lymph # (Auto) 1.81 K/mm3 (0.9-3.2) Benson # (Auto) 0.9 H K/mm3 (0.1-0.6) Eos # (Auto) 0.0 K/mm3 (0-0.3) Baso # (Auto) 0.0 K/mm3 (0.0-0.1) Abs Immat Gran (auto) 0.14 H K/mm3 (0.00-0.031) Absolute Neuts (auto) 21.3 H K/mm3 (1.3-6.7) Absolute Nucleated RBC 0.000 K/mm3 (0.0-0.012) Nucleated RBC % 0.0 % (0.0-0.2) Patient hx anesthesia problems: none Family hx anesthesia problems: none Results Review: All pre-operative results and documents have been reviewed as part of the pre-operative evaluation. [facility] Past Medical History Medical History (Updated 12/23/24 @ 06:33 by Maricel Wayne CRNA) IUP (intrauterine ), incidental Morbid obesity Hx of pre-eclampsia in prior , currently Anxiety Surgical History Surgical History History of Family History Family History Other No active medical problems Social History Social History Smoking status: Current some day smoker Alcohol intake: current Do You Feel Safe in your Home?: Yes Lack of Transportation: No Lack of Food: Never True Current Housing: I Have Housing Concerned About Future Housing: No Difficulty Paying Gas/Electric Bills: No Difficulty Paying for Meds: No Currently Unemployed: No Education: High School Diploma/GED Difficulty w/ Childcare or Family Care: No Exam Day of Procedure 12/23/24 06:32
[2024-12-23 07:04] LABS: Syphilis IgG/IgM Antibody Non-Reactive (Nonreactive)
--- NOTE | 2024-12-23 07:08 | P.HP_ITS ---
H&P: HPI History of Present Illness Date/Time: 12/23/24 07:08 Chief Complaint: Intrauterine at term h/o Narrative: 44 yo who presents at 38w3d days in labor. Patients obstetric history of complicated by history of . She has had a successful in the past. Review of Systems Cardiovascular: Cardiovascular: Denies chest pain, Denies leg edema, Denies palpitations, Denies dyspnea and Denies dyspnea on exertion Respiratory: Respiratory: Denies cough, Denies dyspnea and Denies dyspnea on exertion Gastrointestinal: Gastrointestinal: Denies abdominal pain, Denies c onstipation, Denies diarrhea, Denies nausea and Denies vomiting Genitourinary: Genitourinary: Denies hematuria, Denies urinary frequency, Denies dysuria, Denies pelvic pain, Denies urinary incontinence and Denies vaginal discharge Neurologic: Reports system reviewed and no additional complaints, except as documented Psychiatric: Psychiatric: Reports no additional psychiatric complaints Endocrine: Endocrine: Denies palpitations PMFSH Past Medical History Medical History (Updated 12/23/24 @ 06:33 by Maricel Wayne CRNA) IUP (intrauterine ), incidental Morbid obesity Hx of pre-eclampsia in prior , currently Anxiety Surgical History Surgical History (Updated 12/23/24 @ 07:10 by Albert Lenz MD) History of Family History Family History Other No active medical problems Social History Social History Smoking status: Current some day smoker Alcohol intake: current Do You Feel Safe in your Home?: Yes Lack of Transportation: No Lack of Food: Never True Current Housing: I Have Housing Concerned About Future Housing: No Difficulty Paying Gas/Electric Bills: No Difficulty Paying for Meds: No Currently Unemployed: No Education: High School Diploma/GED Difficulty w/ Childcare or Family Care: No Meds Home Medications and Allergies Home Medications ?Medication ?Instructions ?Recorded ?Confirmed ?Type aspirin 81 mg capsule 81 mg PO DAILY 07/26/24 12/23/24 History docosahexaenoic acid 200 mg mg PO 11/16/24 12/21/24 History capsule ( DHA) ondansetron HCl 4 mg tablet 4 mg PO Q6H PRN nausea and 11/25/24 12/23/24 Rx vomiting #30 tabs docusate sodium 100 mg capsule 100 mg PO DAILY 12/14/24 12/23/24 History (Colace) Allergies Allergy/AdvReac Type Severity Reaction Status Date / Time No Known Allergies Allergy Verified 12/23/24 05:30 Vital Signs Vital Signs - 24 hr 12/23/24 05:30 12/23/24 05:32 12/23/24 05:47 Pulse Rate 86 93 88 Blood Pressure 156/98 H 185/89 H 193/84 H Pulse Oximetry 12/23/24 06:01 12/23/24 06:04 12/23/24 06:07 Pulse Rate 93 105 H 98 Blood Pressure 197/90 H 144/122 H 182/80 H Pulse Oximetry 99 12/23/24 06:09 12/23/24 06:09 12/23/24 06:09 Pulse Rate Blood Pressure Pulse Oximetry 91 92 93 12/23/24 06:09 12/23/24 06:09 12/23/24 06:10 Pulse Rate 74 Blood Pressure 177/86 H Pulse Oximetry 93 12/23/24 06:10 12/23/24 06:11 12/23/24 06:14 Pulse Rate 86 101 H Blood Pressure 175/90 H 195/84 H Pulse Oximetry 90 12/23/24 06:17 12/23/24 06:19 12/23/24 06:23 Pulse Rate 94 Blood Pressure 191/144 H 171/153 H Pulse Oximetry 98 12/23/24 06:25 12/23/24 06:27 12/23/24 06:28 Pulse Rate 90 86 Blood Pressure 127/69 121/65 Pulse Oximetry 98 12/23/24 06:31 12/23/24 06:33 12/23/24 06:36 Pulse Rate 80 87 Blood Pressure 130/70 127/69 Pulse Oximetry 98 12/23/24 06:38 12/23/24 06:41 12/23/24 06:43 Pulse Rate 82 Blood Pressure 130/68 Pulse Oximetry 98 98 12/23/24 06:46 12/23/24 06:48 12/23/24 06:51 Pulse Rate 94 85 Blood Pressure 125/72 135/114 H Pulse Oximetry 98 12/23/24 06:53 12/23/24 06:55 12/23/24 06:57 Pulse Rate 84 82 Blood Pressure 135/77 138/87 Pulse Oximetry 99 12/23/24 06:58 12/23/24 07:01 12/23/24 07:03 Pulse Rate 83 Blood Pressure 140/82 Pulse Oximetry 99 99 Exam Const: General: no acute distress Eyes: EOM: EOMs intact bilaterally Neck: Neck: supple Thyroid: thyroid normal Chest: Breast/axilla inspection: normal inspection of the breasts Breast/axilla palpation: normal palpation of the breasts, normal palpation of the axillae and no axillary lymphadenopathy Resp: Effort & Inspection: normal respiratory effort Auscultation: clear to auscultation bilaterally Cardio: Rate: regular rate Rhythm: regular rhythm GI: Inspection: non-distended and other (Gravid) GI Palp: Yes Soft to palpation, No Tenderness to palpation present (GI) and No Guarding due to palpation present (GI) Auscultation: normal bowel sounds : Speculum Exam - Vagina: No vaginal bleeding OB/external & speculum: external exam normal; No vaginal bleeding Skin: General skin exam: normal color and no rashes or lesions noted Neuro: Cognition (Neuro): normal cognition Speech: normal speech Extrem: General: normal to inspection Psych: Mental Status: mental status grossly normal Affect: normal affect H&P: Results Labs Labs: Short CBC 12/23/24 Range/Units 05:12 WBC 24.2 H (4.5-10.0) K/mm3 Hgb 11.1 L (12.0-15.0) g/dL Hct 35.3 L (37.0-47.0) % Plt Count 249 (150-375) k/mm3 Assessment and Plan Assessment and plan (1) IUP (intrauterine ), incidental: Code(s): Z33.1 - state, incidental Status: Acute Assessment and Plan: 44 yo at 38w3d who presents in labor admit to L&D routine admission orders Rh+ GBS positive, will initiate antibiotics continuous EFM epidural PRN (2) History of section complicating : Code(s): O34.219 - Maternal care for unspecified type scar from previous delivery Status: Acute
--- NOTE | 2024-12-23 07:12 | LDADM ---
This patient, Gail Fischer, was admitted to Labor/Delivery/Recovery 102 on 12/23/24 at 04:32. Plans for labor, pain management and were discussed with patient. Patient/family oriented to hospital policies and general routines including ID bracelet, bed and alarms, visiting hours, pain management, procedures, bathroom and other care routines, personal items, smoking policy, room service/diet and guest tray routines, infant security routines, and visiting hours. Patient/Family are encouraged to report perceived risks to care and to ask questions if they do not understand what they are told or what they should do. See OBIX for further documentation.
[2024-12-23] MEDS: OXYTOCIN 30 UNITS/NS 500 ML 30 UNITS/500 ML BAG 999 UNITS IV CONT (07:37)
--- NOTE | 2024-12-23 07:44 | PM.OBPRVD ---
OB - Vaginal Delivery Note Procedure Delivery date: 12/23/24 Events: Previous Delivery Induction method: None Delivery monitor: External FHT and External Uterine Route of delivery: Episiotomy description: None Laceration Description: Perineal - 1st Degree Delivery repair: vicryl Specimen: No Quantitative Blood Loss (ml): 100 Anesthesia type: Epidural Disposition: Floor Complications: No immediate complications Narrative: Patient pushed for a spontaneous vaginal delivery. The fetus was delivered atraumatically and placed on the maternal abdomen. The cord was clamped and cut after 1 minute of life. The cord was double clamped and cut and a segment of cord was collected for cord gases. Cord blood was collected for blood type and Coomb's testing. The placenta delivered spontaneously and was noted to be intact. The perineum was inspected and a 1st degree perineal laceration was noted. The laceration was repaired with 3-0 vicryl in a running fashion. The fundus was noted to be firm and good hemostasis was noted. The mom and were stable in the delivery room. Morgan Baby Date of : 12/23/24 Time of : 07:34 Gestational Age by Date: 38 gender: Female presentation: vertex position: Right Occiput Anterior Placenta delivery description: Spontaneous Cord Vessel Description: 3 Vessels score one minute: 9 score five minutes: 9
[2024-12-23] MEDS: OXYTOCIN 30 UNITS/NS 500 ML 30 UNITS/500 ML BAG 125 UNITS IV CONT (08:15)
[2024-12-23] MEDS: MULTIVIT/MIN/PREN/FOL AC/IRON TABLET 1 TAB PO (10:27)
[2024-12-23] MEDS: KETOROLAC 15 MG/ML VIAL (*BKC) IV PUSH (10:27)
--- NOTE | 2024-12-23 13:45 | PC.NURSE ---
1345: Patient requested assistance. Baby only ate for 5 minutes at the last feeding but has been sleepy and hard to wake to feed. She is undressed and mom has been trying to stimulate her. We tried to elicit a gape from baby but did not see any feeding cues. Mom is advised to hold baby skin to skin or swaddle and take a break from attempting to feed for 30 minutes to an hour. Mom is concerned that baby will be going too long between feedings. Education provided about normal behavior immediately and how feedings are usually sleepy in the first 24 hours. 1435: To patient room to see if baby had any luck with waking and feeding. Mom has her undressed but she states that she has been unable to wake her. We moved baby to the crib and allowed her to remain unswaddled for a minute. She began to root and open her mouth so she was placed next to mom in the cradle hold on the left breast. Mom needed minimal effort to get baby to latch well. Baby opened her eyes and began to suckle consistently. Mom is encouraged to keep baby awake and actively nursing for as long as she can, with a goal of 15 minutes. Start time recorded on feeding sheet. Mom states there is no nipple pain with latch. She knows to call out for additional assistance if needed. Primary RN updated.
[2024-12-23] MEDS: IBUPROFEN 600 MG TABLET PO ×2 (17:15→23:25)
[2024-12-24 04:58] LABS: Hematocrit 29.0 % (37.0-47.0); Hemoglobin 9.0 g/dL (12.0-15.0)
[2024-12-24 08:00] VITALS: BP 134/66; PULSE 61; RESP 16; TEMP 36.6; O2SAT 98
[2024-12-24] MEDS: MULTIVIT/MIN/PREN/FOL AC/IRON TABLET 1 TAB PO (08:32)
[2024-12-24] MEDS: DOCUSATE SODIUM 100 MG CAPSULE PO ×2 (08:32→17:05)
--- NOTE | 2024-12-24 09:32 | P.PNOB_ITS ---
OB - PN: Subj Subjective Date/time seen: 12/24/24 09:32 Patient comments: no complaints, pain well controlled and tolerating diet [place] feeding status: exclusively breast feeding Narrative: patient doing well this AM. No complaints. Pain is well controlled. She reports minimal bleeding. She is ambulating and voiding without difficulty. She is tolerating PO. She denies N/V, fever, chills. OB - PN: Obj Data Labs 12/24/24 04:16 Labs: Laboratory Results - last 24 hr 12/24/24 04:16 Hgb 9.0 L Hct 29.0 L OB - PN A/P Plan day: 1 Plan: routine care Comments: patient doing well H/H 02/12, continue iron supplementation, asymptomatic Pain is well controlled Denies any bleeding issues Pediatricians to monitor infant for 36 hours due to GBS positive status continue routine care Anticipate discharge home tomorrow morning Time Spent With Patient Time: Total time spent is greater than 50% in coordination of care (as documented) at patient's floor/unit and/or counseling patient: Time with patient: less than 15 minutes Review of Systems 2 Review of Systems: All systems reviewed & are unremarkable except as noted in HPI and below Exam 2 Const: General: comfortable and no acute distress Resp: Effort & Inspection: normal respiratory effort Cardio: Rate: regular rate GI: GI Palp: Yes Soft to palpation and No Tenderness to palpation present (GI) Auscultation: normal bowel sounds Other: fundus firm and below umbilicus. Psych: Affect: normal affect
[2024-12-24] MEDS: IBUPROFEN 600 MG TABLET PO (17:05)
[2024-12-24] MEDS: ACETAMINOPHEN 325 MG TABLET 650 MG PO (17:05)
--- NOTE | 2024-12-24 18:54 | PC.NURSE ---
Addendum entered by Marycruz Mack 12/24/24 18:56: Patient oriented to room, plan of care, safety and security measures, and call light use. Patient verbalizes understanding Original Note: Patient moved to room #112 on first floor from room #282 at 18:53
[2024-12-24 20:24] VITALS: BP 129/85; PULSE 75; RESP 20; TEMP 36.3; O2SAT 99
[2024-12-24 20:25] VITALS: PULSE 67; O2SAT 99
[2024-12-24 20:26] VITALS: BP 129/85; PULSE 71
--- NOTE | 2024-12-24 20:48 | PC.NURSE ---
Patient viewed the discharge video Mother & Baby Care, The First Two Weeks. Patient was given the opportunity and encouraged to ask questions. Patient verbalized understanding of information shared and has been given the mother/baby guide for home reference.
[2024-12-25] MEDS: ACETAMINOPHEN 325 MG TABLET 650 MG PO (00:11)
[2024-12-25] MEDS: IBUPROFEN 600 MG TABLET PO ×2 (00:12→07:38)
[2024-12-25 07:30] VITALS: BP 135/72; PULSE 91; RESP 16; TEMP 37.4; O2SAT 100
[2024-12-25] MEDS: MULTIVIT/MIN/PREN/FOL AC/IRON TABLET 1 TAB PO (07:37)
[2024-12-25] MEDS: DOCUSATE SODIUM 100 MG CAPSULE PO (07:37)
[2024-12-25 07:46] VITALS: PULSE 82; O2SAT 98
[2024-12-25 07:47] VITALS: BP 135/72; PULSE 80
--- NOTE | 2024-12-25 08:55 | P.PNOB_ITS ---
OB - PN: Subj Subjective Date/time seen: 12/25/24 08:55 Narrative: Pain OK. Would like to go home. OB - PN: Obj Data Labs 12/24/24 04:16 OB - PN A/P Plan day: 2 Comments: A: PPD#2, doing well. P: Home to f/u 6 weeks. Exam 2 Psych: Other: AVSS ABD soft, nontender, fundus firm EXT nontender
--- NOTE | 2024-12-25 08:55 | PM.OBDSVD ---
DS: Admitting Diagnosis Discharge Date 12/25/24 Admitting Diagnosis IUP at term Labor Prior , desired TOLAC DS: Discharge Diagnosis Discharge Diagnosis (1) (vaginal after ): Code(s): O34.219 - Maternal care for unspecified type scar from previous delivery Status: Acute OB - DS: Summary OB Procedures : None OB Procedures Intrapartum: OB Procedures: : None Peripartum Data Laceration Description: Perineal - 1st Degree Episiotomy description: None Time Spent with Patient Time attestation: Total time spent providing and/or coordinating discharge services: Discharge Plan Discharge Attending physician on discharge: Lev Anderson Discharging Clinician: Lev Anderson Patient Disposition: Home Activity: pelvic rest Diet: regular Discharge Instructions: Call or return if temperature above 100.4? F, increased abdominal pain, increased vaginal bleeding or any new problems. Patient Language: Citizen Of [place] Stand Alone Forms: General Discharge Information Follow-up/Referrals: Lev Anderson MD [Physician] - 6 Weeks Discharge Medications: New ferrous sulfate 325 mg (65 mg iron) tablet 325 mg PO DAILY Qty: 30 0RF ibuprofen 600 mg tablet 600 mg PO Q6H PRN (Reason: cramps) Qty: 30 0RF Continued docusate sodium [Colace] 100 mg capsule 100 mg PO DAILY DHA 200 mg capsule PO Discontinued aspirin 81 mg capsule 81 mg PO DAILY ondansetron HCl 4 mg tablet 4 mg PO Q6H PRN (Reason: nausea and vomiting) Qty: 30 0RF Date of admission: 12/23/24 04:32 Primary Care Provider: UNKNOWN,DOCTOR Admitting Provider: Lev Anderson Attending physician on admission: Lev Anderson Condition: Stable
== END 2024-12-25 10:30 | disposition home or self-care (01) | DRG 560 ==
LOC: ANHLDR 05:31 → ANHOB2 11:48 → ANHOBPP 12-24 19:18
PROVIDERS: Admitting Provider Student in an Organized Health Care Education/Training Program; Visit Provider Obstetrics & Gynecology
DX: O34.219 Maternal care for unspecified type scar from previous cesarean delivery (principal); Z37.0 Single live birth; Z3A.38 38 weeks gestation of pregnancy; O99.824 Streptococcus B carrier state complicating childbirth; O70.0 First degree perineal laceration during delivery; O62.3 Precipitate labor
CPT/HCPCS: 36415; 85014; 85018; 85025; 86593; 86850; 86900; 86901; A9270; J0290; J1885; J2590; J2795; J7120